=== PATIENT | female | born 1990 | race Caucasian/White ===

== ENCOUNTER 2017-11-26 10:41 | Emergency (ER) | payer BC ==
[~2017-11-26] VITALS: Ht 154.9 cm; Wt 64.9 kg
[2017-11-26 10:55] VITALS: BP 158/93
== END 2017-11-26 12:25 | disposition home or self-care (01) ==
LOC: ER 10:41
DX: O34.81 Maternal care for other abnormalities of pelvic organs, first trimester (principal); N83.209 Unspecified ovarian cyst, unspecified side; Z3A.10 10 weeks gestation of pregnancy
CPT/HCPCS: 76801

== ENCOUNTER 2018-05-19 10:00 | Observation (INO) | payer BC ==
[~2018-05-19] VITALS: Ht 154.9 cm; Wt 86.2 kg
[2018-05-19 12:03] LABS: Basophils # (auto) 0 uL; Basophils % (auto) 0.3 % (0.0-2.0); Eosinophils # (auto) 0.1 uL; Hemoglobin 12.9 g/dL (12.2-16.2); Lymphocytes # (auto) 1.5 uL; Lymphocytes % (auto) 11.7 % (10.0-50.0); Mean Corpuscular Hemoglobin 29.6 pg (28.0-32.0); Mean Corpuscular Hgb Conc. 33.8 g/dL (32.0-36.0); Mean Corpuscular Volume 87.4 fL (80.0-100.0); Monocytes % (auto) 7.3 % (0.0-12.0); Neutrophils # (auto) 10.5 uL; Neutrophils % (auto) 79.7 % (37.0-80.0); Nucleated Red Blood Cells % 0.1 %; Platelet Count (auto) 222 10^3/uL (140-450); Red Blood Cells 4.35 10^6/uL (4.0-5.20); Red Cell Distribution Width 13.4 % (11.8-14.3); White Blood Cell 13.2 10^3/uL (4.4-10.8)
[2018-05-19 12:11] LABS: Potassium 3.8 mmol/L (3.5-5.1)
[2018-05-19 12:20] LABS: Albumin 2.8 g/dL (3.4-5.0); BUN/Creatinine Ratio 7.3; Bilirubin, Total 0.3 mg/dL (0.2-1.0); Calcium 8.8 mg/dL (8.5-10.1); Total Protein 7.2 g/dL (6.4-8.2); Uric Acid 4.6 mg/dL (2.6-6.0)
[2018-05-19 12:23] LABS: INR 0.88 (0.9-1.15); Partial Thromboplastin Time 26.6 sec (23.78-33.04); Prothrombin Time 9.5 sec (9.27-12.13)
[2018-05-19 12:43] LABS: Alcohol, Urine < 3.0 mg/dL (0-5); Amphetamine Screen, Urine NEGATIVE (NEGATIVE); Barbiturate Scree,Urine NEGATIVE (NEGATIVE); Benzodiazephine Screen, Urine NEGATIVE (NEGATIVE); Cannabinoid Screen, Urine NEGATIVE (NEGATIVE); Cocaine Screen, Urine NEGATIVE (NEGATIVE); Opiate Scree,Urine NEGATIVE (NEGATIVE); Phencyclidine Screen, Urine NEGATIVE (NEGATIVE)
[2018-05-19 13:01] LABS: Urine Amorphous Crystal FEW /hpf (None Seen); Urine Bacteria FEW /hpf (None Seen); Urine Blood Negative /uL (Negative); Urine Specific Gravity 1.002 (1.001-1.035); Urine WBC 1 /hpf (0 - 5)
[2018-05-19] MEDS ORDERED: PREN-145 OR ×2 (13:54)
[2018-05-19] MEDS ORDERED: LEVO112T4 PO ×2 (13:54)
[2018-05-20 04:05] LABS: RPR Non Reactive (Non Reactive)
== END 2018-05-19 14:10 | disposition home or self-care (01) | DRG 833 ==
LOC: LDRP 10:00
PROVIDERS: ADMIT Obstetrics & Gynecology; ATTEND Obstetrics & Gynecology
DX: O10.913 Unspecified pre-existing hypertension complicating pregnancy, third trimester (principal); E03.9 Hypothyroidism, unspecified; O99.283 Endocrine, nutritional and metabolic diseases complicating pregnancy, third trimester; O26.893 Other specified pregnancy related conditions, third trimester; M54.9 Dorsalgia, unspecified; Z3A.36 36 weeks gestation of pregnancy; Z87.891 Personal history of nicotine dependence
CPT/HCPCS: 36415; 59025; 76805; 76818; 80053; 80307; 81001; 81002; 84550; 85025; 85610; 85730; 86592; G0378

== ENCOUNTER → 2018-05-19 | Outpatient (CLI) | payer BC ==
[~2018-05-19] MED LIST: LEVO112T4 PO; PREN-145 OR
== END | disposition home or self-care (01) ==
LOC: LAB 15:26
PROVIDERS: ATTEND Obstetrics & Gynecology
DX: Z34.83 Encounter for supervision of other normal pregnancy, third trimester (principal); Z3A.36 36 weeks gestation of pregnancy
CPT/HCPCS: 87081

== ENCOUNTER 2018-05-21 08:30 | Observation (INO) | payer BC | END 2018-05-21 11:10 | disposition home or self-care (01) | DRG 833 | LOC: LDRP 08:30 | PROVIDERS: ADMIT Specialist; ATTEND Specialist | DX: O13.3 Gestational [pregnancy-induced] hypertension without significant proteinuria, third trimester (principal); Z87.891 Personal history of nicotine dependence; Z3A.36 36 weeks gestation of pregnancy | CPT/HCPCS: 59025; 81002; 84156; G0378 ==

== ENCOUNTER 2018-05-28 09:20 | Observation (INO) | payer BC ==
[2018-05-28 09:58] LABS: Basophils # (auto) 0 uL; Basophils % (auto) 0.3 % (0.0-2.0); Eosinophils # (auto) 0.1 uL; Eosinophils % (auto) 1.1 % (0.0-7.0); Hematocrit 37.1 % (36.0-46.0); Hemoglobin 12.5 g/dL (12.2-16.2); Lymphocytes # (auto) 1.5 uL; Mean Corpuscular Hemoglobin 29.1 pg (28.0-32.0); Mean Corpuscular Hgb Conc. 33.5 g/dL (32.0-36.0); Mean Corpuscular Volume 86.8 fL (80.0-100.0); Monocytes % (auto) 8.1 % (0.0-12.0); Neutrophils # (auto) 9.6 uL; Neutrophils % (auto) 78.5 % (37.0-80.0); Platelet Count (auto) 238 10^3/uL (140-450); Red Blood Cells 4.28 10^6/uL (4.0-5.20); Red Cell Distribution Width 13.2 % (11.8-14.3); White Blood Cell 12.2 10^3/uL (4.4-10.8)
[2018-05-28 10:12] LABS: Albumin 2.7 g/dL (3.4-5.0); Calcium 8.8 mg/dL (8.5-10.1)
[2018-05-28 10:15] LABS: BUN/Creatinine Ratio 11.7; Bilirubin, Total 0.2 mg/dL (0.2-1.0); Total Protein 7.1 g/dL (6.4-8.2)
[2018-05-28 11:19] LABS: INR 0.87 (0.9-1.15); Partial Thromboplastin Time 26.6 sec (23.78-33.04); Prothrombin Time 9.4 sec (9.27-12.13)
== END 2018-05-28 11:20 | disposition home or self-care (01) | DRG 833 ==
LOC: LDRP 09:20
PROVIDERS: ADMIT Obstetrics & Gynecology; ATTEND Obstetrics & Gynecology
DX: O13.3 Gestational [pregnancy-induced] hypertension without significant proteinuria, third trimester (principal); O99.283 Endocrine, nutritional and metabolic diseases complicating pregnancy, third trimester; E03.9 Hypothyroidism, unspecified; Z3A.37 37 weeks gestation of pregnancy
CPT/HCPCS: 36415; 59025; 76818; 80053; 81002; 84550; 85025; 85610; 85730; G0378

== ENCOUNTER 2018-06-02 14:05 | Observation (INO) | payer BC ==
[2018-06-02 15:30] LABS: Basophils # (auto) 0 uL; Basophils % (auto) 0.2 % (0.0-2.0); Eosinophils # (auto) 0.1 uL; Eosinophils % (auto) 1.2 % (0.0-7.0); Hematocrit 36.2 % (36.0-46.0); Hemoglobin 12.3 g/dL (12.2-16.2); Lymphocytes # (auto) 1.6 uL; Lymphocytes % (auto) 13.6 % (10.0-50.0); Mean Corpuscular Hemoglobin 29.4 pg (28.0-32.0); Mean Corpuscular Hgb Conc. 33.9 g/dL (32.0-36.0); Mean Corpuscular Volume 86.8 fL (80.0-100.0); Monocytes # (auto) 0.9 uL; Monocytes % (auto) 7.6 % (0.0-12.0); Neutrophils # (auto) 9.1 uL; Neutrophils % (auto) 77.4 % (37.0-80.0); Nucleated Red Blood Cells % 0.2 %; Platelet Count (auto) 248 10^3/uL (140-450); Red Blood Cells 4.17 10^6/uL (4.0-5.20); Red Cell Distribution Width 13.8 % (11.8-14.3); White Blood Cell 11.8 10^3/uL (4.4-10.8)
[2018-06-02 15:43] LABS: Albumin 2.7 g/dL (3.4-5.0); Calcium 9.6 mg/dL (8.5-10.1); Potassium 4.1 mmol/L (3.5-5.1)
[2018-06-02 15:47] LABS: BUN/Creatinine Ratio 10.5; Bilirubin, Total 0.2 mg/dL (0.2-1.0); Total Protein 7.2 g/dL (6.4-8.2); Uric Acid 5.2 mg/dL (2.6-6.0)
[2018-06-02 15:53] LABS: INR 0.88 (0.9-1.15); Partial Thromboplastin Time 26.6 sec (23.78-33.04); Prothrombin Time 9.5 sec (9.27-12.13)
[2018-06-02 15:53] LABS: Urine Bacteria FEW /hpf (None Seen); Urine Blood Negative /uL (Negative); Urine Specific Gravity 1.001 (1.001-1.035); Urine WBC 1 /hpf (0 - 5)
== END 2018-06-02 16:35 | disposition home or self-care (01) | DRG 833 ==
LOC: LDRP 14:05
PROVIDERS: ADMIT Specialist; ATTEND Specialist
DX: O13.3 Gestational [pregnancy-induced] hypertension without significant proteinuria, third trimester (principal); O26.893 Other specified pregnancy related conditions, third trimester; N89.8 Other specified noninflammatory disorders of vagina; Z3A.38 38 weeks gestation of pregnancy; Z87.891 Personal history of nicotine dependence
CPT/HCPCS: 36415; 59025; 76818; 80053; 81001; 81002; 84550; 85025; 85610; 85730; G0378

== ENCOUNTER 2018-06-04 14:24 | Observation (INO) | payer BC ==
[2018-06-04 15:42] LABS: Protein, Urine 10.6 mg/dL (0.0-11.9)
[2018-06-05] MEDS ORDERED: LABE200T18 PO (13:17)
== END 2018-06-04 16:50 | disposition home or self-care (01) | DRG 833 ==
LOC: LDRP 14:24
PROVIDERS: ADMIT Specialist; ATTEND Specialist
DX: O13.3 Gestational [pregnancy-induced] hypertension without significant proteinuria, third trimester (principal); O62.9 Abnormality of forces of labor, unspecified; O24.419 Gestational diabetes mellitus in pregnancy, unspecified control; O99.283 Endocrine, nutritional and metabolic diseases complicating pregnancy, third trimester; E03.9 Hypothyroidism, unspecified; Z87.891 Personal history of nicotine dependence; Z3A.38 38 weeks gestation of pregnancy
CPT/HCPCS: 59025; 76818; 81002; 84156; G0378

== ENCOUNTER 2018-06-05 12:00 | Observation (INO) | payer BC ==
[2018-06-05] MEDS ORDERED: LABE200T18 PO (13:17)
== END 2018-06-05 14:40 | disposition home or self-care (01) | DRG 833 ==
LOC: LDRP 12:00
PROVIDERS: ADMIT Obstetrics & Gynecology; ATTEND Obstetrics & Gynecology
DX: O13.3 Gestational [pregnancy-induced] hypertension without significant proteinuria, third trimester (principal); N89.8 Other specified noninflammatory disorders of vagina; O26.893 Other specified pregnancy related conditions, third trimester; O10.913 Unspecified pre-existing hypertension complicating pregnancy, third trimester; O99.283 Endocrine, nutritional and metabolic diseases complicating pregnancy, third trimester; E03.9 Hypothyroidism, unspecified; Z87.891 Personal history of nicotine dependence; Z3A.38 38 weeks gestation of pregnancy
CPT/HCPCS: 59025; 76815; 81002; G0378

== ENCOUNTER 2018-06-07 08:00 | Inpatient (IN) | payer BC ==
[~2018-06-07 08:00] MED LIST changes: +LABE200T18 PO
[2018-06-07 10:27] LABS: Basophils # (auto) 0 uL; Basophils % (auto) 0.2 % (0.0-2.0); Eosinophils # (auto) 0.1 uL; Eosinophils % (auto) 1.2 % (0.0-7.0); Hematocrit 36.1 % (36.0-46.0); Hemoglobin 12.1 g/dL (12.2-16.2); Lymphocytes # (auto) 1.6 uL; Lymphocytes % (auto) 13.7 % (10.0-50.0); Mean Corpuscular Hemoglobin 29.2 pg (28.0-32.0); Mean Corpuscular Hgb Conc. 33.5 g/dL (32.0-36.0); Mean Corpuscular Volume 87.2 fL (80.0-100.0); Monocytes % (auto) 8.4 % (0.0-12.0); Neutrophils # (auto) 9.1 uL; Neutrophils % (auto) 76.5 % (37.0-80.0); Nucleated Red Blood Cells % 0.1 %; Platelet Count (auto) 236 10^3/uL (140-450); Red Blood Cells 4.14 10^6/uL (4.0-5.20); Red Cell Distribution Width 14.1 % (11.8-14.3); White Blood Cell 11.8 10^3/uL (4.4-10.8)
[2018-06-07 10:48] LABS: Urine Bacteria FEW /hpf (None Seen); Urine Blood Negative /uL (Negative); Urine Specific Gravity 1.003 (1.001-1.035); Urine WBC 2 /hpf (0 - 5)
[2018-06-07 11:08] LABS: Albumin 2.7 g/dL (3.4-5.0); Calcium 8.9 mg/dL (8.5-10.1); Potassium 4.1 mmol/L (3.5-5.1)
[2018-06-07 11:12] LABS: BUN/Creatinine Ratio 14.5; Bilirubin, Total 0.2 mg/dL (0.2-1.0); Total Protein 7.2 g/dL (6.4-8.2)
[2018-06-07 11:26] LABS: INR 0.89 (0.9-1.15); Partial Thromboplastin Time 26.6 sec (23.78-33.04); Prothrombin Time 9.6 sec (9.27-12.13)
[2018-06-07 12:22] LABS: Fibrinogen 482.3 mg/dL (177-375)
== END 2018-06-07 12:00 | disposition home or self-care (01) | DRG 833 ==
LOC: LDRP 08:00
PROVIDERS: ADMIT Specialist; ATTEND Specialist
DX: O13.3 Gestational [pregnancy-induced] hypertension without significant proteinuria, third trimester (principal); Z3A.38 38 weeks gestation of pregnancy
CPT/HCPCS: 36415; 59025; 76818; 80053; 81001; 81002; 84550; 85025; 85384; 85610; 85730; G0378

== ENCOUNTER 2018-06-08 09:05 | Observation (INO) | payer BC | END 2018-06-08 11:05 | disposition home or self-care (01) | DRG 833 | LOC: LDRP 09:05 | PROVIDERS: ADMIT Specialist; ATTEND Specialist | DX: O13.3 Gestational [pregnancy-induced] hypertension without significant proteinuria, third trimester (principal); O99.283 Endocrine, nutritional and metabolic diseases complicating pregnancy, third trimester; E03.9 Hypothyroidism, unspecified; Z87.891 Personal history of nicotine dependence; Z3A.38 38 weeks gestation of pregnancy | CPT/HCPCS: 59025; 76815; 81002; G0378 ==

== ENCOUNTER 2018-06-09 08:25 | Observation (INO) | payer BC | END 2018-06-09 09:55 | disposition home or self-care (01) | DRG 833 | LOC: LDRP 08:25 | PROVIDERS: ADMIT Specialist; ATTEND Specialist | DX: O13.3 Gestational [pregnancy-induced] hypertension without significant proteinuria, third trimester (principal); O62.9 Abnormality of forces of labor, unspecified; O26.893 Other specified pregnancy related conditions, third trimester; N89.8 Other specified noninflammatory disorders of vagina; O99.283 Endocrine, nutritional and metabolic diseases complicating pregnancy, third trimester; E03.9 Hypothyroidism, unspecified; Z3A.38 38 weeks gestation of pregnancy; Z87.891 Personal history of nicotine dependence | CPT/HCPCS: 59025; 76815; 81002; G0378 ==

== ENCOUNTER 2018-06-10 09:05 | Observation (INO) | payer BC | END 2018-06-10 09:40 | disposition home or self-care (01) | DRG 833 | LOC: LDRP 09:05 | PROVIDERS: ADMIT Specialist; ATTEND Specialist | DX: O13.3 Gestational [pregnancy-induced] hypertension without significant proteinuria, third trimester (principal); O99.283 Endocrine, nutritional and metabolic diseases complicating pregnancy, third trimester; E03.9 Hypothyroidism, unspecified; Z3A.38 38 weeks gestation of pregnancy; Z87.891 Personal history of nicotine dependence | CPT/HCPCS: 59025; 81002; G0378 ==

== ENCOUNTER 2018-06-12 07:58 | Inpatient (IN) | payer BC ==
[~2018-06-12] VITALS: Ht 154.9 cm; Wt 88.0 kg
[2018-06-12] MEDS ORDERED: LACT. RINGERS/OXYTOCIN 20UNITS 1,000 ML IV SCH (08:12)
[2018-06-12] MEDS ORDERED: PHISODERM TOP SOLN 240ML BTL TOP PRN (08:15)
[2018-06-12] MEDS ORDERED: NALBUPHINE HCL 10 MG/1ml INJECTION IV PRN ×2 (08:15→08:30)
[2018-06-12] MEDS ORDERED: LIDOCAINE 1% (LOCAL ANESTH.) PF 5ml SDV IJ ONE (08:15)
[2018-06-12] MEDS ORDERED: WITCH HAZEL-GLYCERIN PAD TOP PRN (08:15)
[2018-06-12] MEDS ORDERED: DERMOPLAST 60ML BOTTLE TOP PRN (08:15)
[2018-06-12] MEDS: LACTATED RINGER'S 1,000 ML IV SCH ×2 (09:00→15:36)
[2018-06-12 09:19] LABS: Basophils # (auto) 0 uL; Basophils % (auto) 0.3 % (0.0-2.0); Eosinophils # (auto) 0.1 uL; Hematocrit 35.2 % (36.0-46.0); Lymphocytes # (auto) 1.4 uL; Lymphocytes % (auto) 11.7 % (10.0-50.0); Mean Corpuscular Hemoglobin 29.7 pg (28.0-32.0); Mean Corpuscular Hgb Conc. 34.2 g/dL (32.0-36.0); Mean Corpuscular Volume 86.7 fL (80.0-100.0); Monocytes % (auto) 7.9 % (0.0-12.0); Neutrophils # (auto) 9.6 uL; Neutrophils % (auto) 79.1 % (37.0-80.0); Platelet Count (auto) 237 10^3/uL (140-450); Red Blood Cells 4.06 10^6/uL (4.0-5.20); Red Cell Distribution Width 13.5 % (11.8-14.3); White Blood Cell 12.2 10^3/uL (4.4-10.8)
[2018-06-12 09:32] LABS: INR 0.88 (0.9-1.15); Partial Thromboplastin Time 25.5 sec (23.78-33.04); Prothrombin Time 9.5 sec (9.27-12.13)
[2018-06-12 10:07] LABS: Urine Bacteria MOD /hpf (None Seen); Urine Blood Negative /uL (Negative); Urine Specific Gravity 1.003 (1.001-1.035); Urine WBC 1 /hpf (0 - 5)
[2018-06-12 10:35] LABS: Albumin 2.7 g/dL (3.4-5.0); Calcium 9.1 mg/dL (8.5-10.1); Potassium 3.7 mmol/L (3.5-5.1)
[2018-06-12 10:37] LABS: Bilirubin, Total 0.3 mg/dL (0.2-1.0); Total Protein 6.9 g/dL (6.4-8.2)
[2018-06-12] MEDS ORDERED: LEVOTHYROXINE SODIUM 112 MCG TAB PO ONE (10:45)
[2018-06-12] MEDS ORDERED: LABETALOL HCL 200 MG TAB PO SCH (22:00)
[2018-06-13] MEDS: LACTATED RINGER'S 1,000 ML IV SCH ×3 (00:12→15:45)
[2018-06-13 05:06] LABS: RPR Non Reactive (Non Reactive)
[2018-06-13] MEDS ORDERED: LACT. RINGERS/OXYTOCIN 20UNITS 1,000 ML IV SCH (06:52)
[2018-06-13] MEDS ORDERED: TERBUTALINE SULFATE 1 MG/ML 1ML VIAL SC ONE (07:00)
[2018-06-13] MEDS: LEVOTHYROXINE SODIUM 112 MCG TAB PO SCH (07:07)
[2018-06-13] MEDS ORDERED: LACTATED RINGER'S 500 ML IV ONE (15:22)
[2018-06-13] MEDS ORDERED: LIDOCAINE HCL 2 %PF INJ 10ML AMP IJ ONE (15:30)
[2018-06-13] MEDS ORDERED: fentaNYL W ROPIVACAINE 150 ML EPI SCH ×2 (15:30→16:45)
[2018-06-13] MEDS ORDERED: ePHEDrine SULFATE 50 MG/ML AMP IV ONE ×2 (15:30→16:45)
[2018-06-13] MEDS ORDERED: NALOXONE HCL 0.4 MG/ML VIAL IV ONE ×2 (15:30→16:45)
[2018-06-13] MEDS ORDERED: fentaNYL CITRATE 100 MCG/2 ML VL IV ONE (15:30)
[2018-06-13] MEDS: LABETALOL HCL 200 MG TAB PO SCH (15:32)
[2018-06-13] MEDS ORDERED: LIDOCAINE W/ EPINEPHRINE 1 % INJ 30ML ONE (16:18)
[2018-06-13] MEDS ORDERED: SODIUM CHLORIDE 0.9% 500 ML IV PRN (16:37)
[2018-06-13] MEDS ORDERED: LIDOCAINE 2%HCL (LOCAL ANESTH.) INJ 20ML MDV ONE (23:55)
[2018-06-14] VITALS (16 sets, daily range): BP systolic 109–187; BP diastolic 54–91
[2018-06-14] MEDS: LACTATED RINGER'S 1,000 ML IV SCH (00:12)
[2018-06-14] MEDS ORDERED: MORPHINE SULF(PF) 0.5MG/ML 10ML VIAL ONE (01:32)
[2018-06-14] MEDS ORDERED: fentaNYL CITRATE 100 MCG/2 ML VL ONE ×2 (01:32→02:05)
[2018-06-14] MEDS ORDERED: GLYCOPYRROLATE 0.2 MG/ML 1ML VIAL IV ONE (01:43)
[2018-06-14] MEDS ORDERED: NEOSTIGMINE 1 MG/ML INJ (10mg/10ML VIAL) IV ONE (01:43)
[2018-06-14] MEDS ORDERED: LIDOCAINE HCL 2 %PF INJ 10ML AMP IJ ONE (01:43)
[2018-06-14] MEDS ORDERED: SUCCINYLCHOLINE CHLORIDE 20 MG/ML 10ML VIAL IV ONE (01:55)
[2018-06-14] MEDS ORDERED: ROCURONIUM 10MG/ML 10ML VIAL IV ONE (02:05)
[2018-06-14] MEDS: HYDROmorphone HCL 2 MG/ML VL ONE ×4 (02:55→03:25)
[2018-06-14] MEDS ORDERED: ceFAZolin 1GM/50ML 50 ML IV SCH (03:00)
[2018-06-14] MEDS ORDERED: LACTATED RINGER'S 1,000 ML IV SCH ×2 (03:00→06:38)
[2018-06-14] MEDS ORDERED: OXYTOCIN 10UNIT/ML 1ML VIAL ONE (03:12)
[2018-06-14] MEDS ORDERED: ONDANSETRON HCL 4 MG/2 ML VIAL IV ONE (03:15)
[2018-06-14] MEDS ORDERED: MORPHINE SULFATE 4 MG/ML SYR/VIAL IV PRN (03:15)
[2018-06-14] MEDS ORDERED: ePHEDrine SULFATE 50 MG/ML AMP IV PRN (03:15)
[2018-06-14] MEDS: hydrALAZINE HCL 20 MG/ML VL IV PRN ×3 (03:26→04:35)
[2018-06-14] MEDS: KETOROLAC TROMETH 30 MG/ML 1ML VIAL IV PRN ×3 (04:20→17:47)
[2018-06-14] MEDS ORDERED: LACT. RINGERS/OXYTOCIN 20UNITS 1,000 ML IV SCH (06:38)
[2018-06-14] MEDS: LABETALOL HCL 200 MG TAB PO SCH ×3 (06:38→22:00)
[2018-06-14] MEDS: HYDROmorphone HCL 2 MG/ML VL IV PRN ×3 (06:55→15:35)
[2018-06-14 08:08] LABS: Albumin 2.2 g/dL (3.4-5.0); Calcium 8.5 mg/dL (8.5-10.1); Potassium 3.7 mmol/L (3.5-5.1)
[2018-06-14 08:13] LABS: BUN/Creatinine Ratio 10.4; Bilirubin, Total 0.7 mg/dL (0.2-1.0)
[2018-06-14] MEDS: LEVOTHYROXINE SODIUM 112 MCG TAB PO SCH (08:59)
[2018-06-14] MEDS: ceFAZolin 1GM/50ML 50 ML IV SCH ×2 (09:50→19:00)
[2018-06-14] MEDS ORDERED: HYDROmorphone HCL 2 MG/ML VL IV ONE (10:00)
[2018-06-14] MEDS ORDERED: HYDROcodone-ACET 5/325MG TAB PO PRN (19:30)
[2018-06-14] MEDS: HYDROcodone-ACET 5/325MG TAB PO PRN (20:45)
[2018-06-14] MEDS: DOCUSATE SOD 100 MG CAP PO SCH (21:46)
[2018-06-15] VITALS (12 sets, daily range): BP systolic 107–143; BP diastolic 55–85
[2018-06-15] MEDS: HYDROcodone-ACET 5/325MG TAB PO PRN ×4 (02:49→20:54)
[2018-06-15] MEDS: ceFAZolin 1GM/50ML 50 ML IV SCH (02:50)
[2018-06-15 06:27] LABS: Basophils # (auto) 0 uL; Basophils % (auto) 0.1 % (0.0-2.0); Eosinophils # (auto) 0.1 uL; Eosinophils % (auto) 0.7 % (0.0-7.0); Hematocrit 29.2 % (36.0-46.0); Hemoglobin 9.9 g/dL (12.2-16.2); Lymphocytes # (auto) 1.2 uL; Lymphocytes % (auto) 8.4 % (10.0-50.0); Mean Corpuscular Volume 88.3 fL (80.0-100.0); Monocytes # (auto) 1.2 uL; Neutrophils # (auto) 12.3 uL; Neutrophils % (auto) 82.8 % (37.0-80.0); Platelet Count (auto) 192 10^3/uL (140-450); Red Blood Cells 3.31 10^6/uL (4.0-5.20); Red Cell Distribution Width 14.2 % (11.8-14.3); White Blood Cell 14.8 10^3/uL (4.4-10.8)
--- NOTE | 2018-06-15 07:30 | NUR ---
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 10 chris intact and incision well approximated without drainage or redness Addendum: 06/15/18 at 0745 by Bautista Eason RN Amended: Links added.
[2018-06-15] MEDS: LEVOTHYROXINE SODIUM 112 MCG TAB PO SCH (07:34)
[2018-06-15] MEDS: LABETALOL HCL 200 MG TAB PO SCH ×2 (10:20→20:41)
--- NOTE | 2018-06-15 10:20 | NUR ---
Received verbal orders from Dr Tovar to hold labetalol at this time
[2018-06-15] MEDS: DOCUSATE SOD 100 MG CAP PO SCH ×2 (10:30→21:30)
[2018-06-15] MEDS: IBUPROFEN 800 MG TAB PO PRN ×2 (11:51→19:41)
--- NOTE | 2018-06-15 13:49 | NUR ---
Report given to Rebeca Chase RN
--- NOTE | 2018-06-15 13:49 | NUR ---
REPORT RECEIVED FROM FELECIA MAGALLON
[2018-06-15] MEDS: SIMETHICONE 80 MG CHEWABLE TABLET PO PRN (15:28)
--- NOTE | 2018-06-15 15:33 | NUR ---
Upon doing vitals on patient noted patient heart rate at 130 bpm. radial pulse done and confirmed pulse at 130 and 140 bpm. placed o2 on patient via mask. patient states she does not feel dizzy or light headed just a little short of breath . gave pain medication as per ordered .will re- assess and continue to monitor.
[2018-06-15] MEDS ORDERED: FUROSEMIDE 20 MG/2 ML VIAL IV ONE (16:30)
--- NOTE | 2018-06-15 16:50 | NUR ---
[address] TINAJERO AND GAVE A SBAR REPORT . READ ALL VITAL TO HIM PATIENTS HEART RATE WAS 130 BPM AND I TOOK RADIAL PULES AND NOTED HEART RATE 130 AND 140 TAKEN TWICE. PATIENT STATES SHE IS NOT DIZZY BUT IS SHORT OF BREATH. PLACE O2 AT ON PATIENT AT 10 L VIA FACE MASK AND 02 SAT AT 100%. AFTER REASSESSING PATIENT NOTED HEART RATE AT 116. READ LAB VALUES TO DOCTOR NOTED HGB DECREASED TO 9.9 AND WAS TAKEN TODAY AROUND 0555 AM. CONFIRMED A HOLD ON MEDICATION LABETALOL. NEW ORDERS RECEIVED DO A STAT CHEST XRAY, EKG, CMP AND GIVE MEDICATION LASIX 20 MG/IV/ONCE. 1641PATIENT OFF FLOOR FOR 2 VIEW CHEST X-RAY. PATIENT BACK ON FLOOR FROM X-RAY DEPARTMENT AT 1650 HOUR.
--- NOTE | 2018-06-15 17:30 | NUR ---
PER DR. TINAJERO OK TO STOP .
--- NOTE | 2018-06-15 17:30 | NUR ---
TANVI Low AT BEDSIDE AND ASSESSED PATIENT HEART RATE 125 BPM AND 02 SAT AT 97 %. ALSO SEEN CHEST X-RAY RESULTS AND CMP STILL PENDING. NEW ORDERS RECEIVED CALL HOSPITALIST FOR A CONSULT FOR TACHYCARDIA, GIVE MEDICATION ZOSYN 3.375 /IV Q6 HOURS. EKG DONE AND DR. TINAJERO AWARE OF RESULTS.
[2018-06-15 17:32] LABS: Albumin 2.1 g/dL (3.4-5.0); BUN/Creatinine Ratio 4.6; Calcium 8.7 mg/dL (8.5-10.1); Potassium 3.7 mmol/L (3.5-5.1)
[2018-06-15 17:35] LABS: Bilirubin, Total 0.3 mg/dL (0.2-1.0); Total Protein 5.9 g/dL (6.4-8.2)
--- NOTE | 2018-06-15 17:45 | NUR ---
Talked to hospitalist Bernardo and he states he is coming over to see patient. sbar report given.
--- NOTE | 2018-06-15 18:45 | NUR ---
currently at [facility] NICU. Addendum: 06/15/18 at 2124 by Mireya Lin RN Amended: Links added.
--- NOTE | 2018-06-15 18:45 | NUR ---
lower abdominal incision lower abdominal incision clean, dry and well approximated. 10 chris present and intact. Site left open to air. Addendum: 06/15/18 at 2124 by Mireya Lin RN Amended: Links added.
--- NOTE | 2018-06-15 18:50 | NUR ---
DISCUSSED POC Per Rebeca Chase RN, pt does not want to receive Zosyn due to potential adverse effects on while pumping breast milk to supply NICU. Informed pt she can consult with Yolanda Mcfarlane NICU nurse to discuss medication safety in regards to breastmilk. Educated pt regarding indication for use of antibiotic, educated pt regarding pt rights in regard to treatment. Pt wishes to hold medication at this time, requests alternatives to current POC be discussed with physician.
--- NOTE | 2018-06-15 19:00 | NUR ---
SBAR GIVEN TO Rebeca NATHAN CNM Full SBAR given to Rebeca Nathan CNM regarding pt, all pertinent labs, vitals, orders and medications reviewed with CMN at this time. Per CNM, pt to continue with current medication orders, re-evaluate need for IV antibiotic therapy with Dr. Tovar in AM. Orders received to change TSH draw to 06/16/18 at 0600. Orders will be followed.
--- NOTE | 2018-06-15 19:30 | NUR ---
PT AGREES TO ANTIBIOTIC THERAPY Pt agrees to current POC and to comply with IV antibiotics at this time.
[2018-06-15] MEDS: PIPERACILLIN-TAZOB 3.375GM 100 ML IV SCH (19:41)
--- NOTE | 2018-06-15 20:00 | NUR ---
IS PROVIDED Incentive spirometer provided to pt. Pt educated regarding benefits of use/risks of not using IS. Instructed pt regarding use and frequency fo use. Pt verbalizes understanding of all teaching and provides return demonstration.
--- NOTE | 2018-06-15 20:30 | NUR ---
CALL PLACED TO CNM UPDATED CNM REGARDING PT INCLUDING CURRENT VS, REQUESTED EARLY ADMINISTRATION OF NEW HOSPITALIST'S ORDER FOR LABETALOL TO BEGIN AT 2200. PER CNM, PT MAY RECEIVE FIRST DOSE OF 100MG LABETALOL PO NOW. ORDERS WILL BE FOLLOWED.
[2018-06-16] VITALS (9 sets, daily range): BP systolic 114–132; BP diastolic 62–82
--- NOTE | 2018-06-16 00:30 | NUR ---
Discharge: Discharge instructions given as ordered. Pt encouraged to follow up with ELDER COUNSELOR as instructed. All questions and concerns addressed. Patient verbalized understanding. Medication reconciliation completed and copy given to patient. All required/requested vaccines given and copies of vaccinations given to patient.
[2018-06-16] MEDS ORDERED: LABE200T18 PO (00:32)
[2018-06-16] MEDS: PIPERACILLIN-TAZOB 3.375GM 100 ML IV SCH ×5 (02:56→21:43)
[2018-06-16] MEDS: HYDROcodone-ACET 5/325MG TAB PO PRN ×4 (03:05→20:26)
[2018-06-16] MEDS: IBUPROFEN 800 MG TAB PO PRN ×3 (04:59→21:47)
[2018-06-16] MEDS: LEVOTHYROXINE SODIUM 112 MCG TAB PO SCH (07:17)
--- NOTE | 2018-06-16 08:22 | NUR ---
NOTIFIED DR. TINAJERO, STATUS UPDATE GIVEN. DR. TINAJERO NOTIFIED OF PTS TRENDING VITAL SIGNS, PTS LUNG SOUNDS ARE CLEAR AND EQUAL BILATERALLY. NO S/S OF DISTRESS OR SOB NOTED. ORDERS RECEIVED FROM DR. TINAJERO TO CONTINUE WITH CURRENT PLAN OF CARE. READ BACK AND VERIFIED ORDERS. Addendum: 06/16/18 at 0938 by Martina Vogel RN DR. TINAJERO ALSO MADE AWARE OF PTS TSH LEVEL OF 5.80.
[2018-06-16] MEDS: LABETALOL HCL 200 MG TAB PO SCH ×2 (09:49→21:48)
[2018-06-16] MEDS: DOCUSATE SOD 100 MG CAP PO SCH ×2 (09:50→21:47)
[2018-06-16] MEDS: SIMETHICONE 80 MG CHEWABLE TABLET PO PRN (17:35)
[2018-06-17 03:00] VITALS: BP 113/67
[2018-06-17] MEDS: PIPERACILLIN-TAZOB 3.375GM 100 ML IV SCH (03:57)
[2018-06-17] MEDS ORDERED: MEASLES, MUMPS & RUBELLA VAC(MMRII) 0.5ML SC ONE (04:45)
[2018-06-17] MEDS: IBUPROFEN 800 MG TAB PO PRN (05:35)
[2018-06-17 06:44] VITALS: BP 129/70
[2018-06-17] MEDS: LEVOTHYROXINE SODIUM 112 MCG TAB PO SCH (06:48)
--- NOTE | 2018-06-17 07:12 | NUR ---
Rebeca Nathan CNM at pt bedside for staple removal Lower abdominal incision approximated, no drainage/redness/inflammation visualized at time of removal. Steri-strips applied by Rebeca Nathan CNM. Education provided on incisional care completed by Rebeca Nathan CNM. Patient verbalized understanding and willingness to comply to instructions/teaching provided.
[2018-06-17] MEDS: HYDROcodone-ACET 5/325MG TAB PO PRN (07:20)
--- NOTE | 2018-06-17 08:20 | NUR ---
Discharge: Discharge instructions given as ordered. Pt encouraged to follow up with OUTREACH MANAGER as instructed. All questions and concerns addressed. Patient verbalized understanding. Medication reconciliation completed and copy given to patient. All required/requested vaccines given and copies of vaccinations given to patient. Patient encouraged to prepare to depart unit.
--- NOTE | 2018-06-17 08:21 | NUR ---
IV removal IV DC'd with sterile technique, catheter fully intact. Pressure dressing applied to site. Patient tolerated procedure well. Discharged with aftercare instructions per MD.
--- NOTE | 2018-06-17 09:00 | NUR ---
Discharge: Patient taken to vehicle via wheelchair with all personal belongings, accompanied by staff and family member. No distress noted at time of departure, no adverse changes in status since initial assessment.
== END 2018-06-17 09:00 | disposition home or self-care (01) | DRG 788 ==
LOC: LDRP 07:58
PROVIDERS: ADMIT Specialist; ATTEND Specialist
PROC: 10D00Z1 Extraction of Products of Conception, Low, Open Approach (ICD-10-PCS; 2018-06-14)
PROC: 10D00Z1 Extraction of Products of Conception, Low, Open Approach (ICD-10-PCS; principal; 2018-06-14 01:43)
DX: O13.4 Gestational [pregnancy-induced] hypertension without significant proteinuria, complicating childbirth (principal); O77.0 Labor and delivery complicated by meconium in amniotic fluid; O64.0XX0 Obstructed labor due to incomplete rotation of fetal head, not applicable or unspecified; O63.1 Prolonged second stage (of labor); O62.1 Secondary uterine inertia; O66.5 Attempted application of vacuum extractor and forceps; Z3A.39 39 weeks gestation of pregnancy; Z37.0 Single live birth; Z88.8 Allergy status to other drugs, medicaments and biological substances
CPT/HCPCS: 36415; 51702; 59025; 62282; 71046; 80053; 81001; 84443; 85025; 85610; 85730; 86592; 86850; 86900; 86901; 93005; 94760; 94762; 96361; 96365; 96366; 96372; 96374; 96375; A6257; G0378; J0330; J0690; J1885; J2543; J2590; J3010